=== PATIENT | female | born 1970 | race Caucasian/White ===

== ENCOUNTER → 2016-04-08 | Outpatient (CLI) | payer OTHER ==
[~2016-04-08] MED LIST: ACET-1311 PO; ATV5 PO; DYZ PO; EFF50 PO; EFFSR150 PO; IBUP-1050 PO; MAGN250T8 PO; PHEN-283 PO; POTA99TA PO; SIMV10TA2 PO
== END | disposition home or self-care (01) ==
LOC: C.LABBFT 08:03
PROVIDERS: ATTEND Internal Medicine
DX: E55.9 Vitamin D deficiency, unspecified (principal)

== ENCOUNTER → 2016-04-21 | Outpatient (CLI) | payer OTHER ==
[2016-04-21 17:25] LABS: BLOOD UREA NITROGEN 15 mg/dl (7-18); BUN/CREATININE RATIO 16.9 (10-20); CARBON DIOXIDE 32 mmol/L (21-32); CHLORIDE 100 mmol/L (98-107); CREATININE 0.86 mg/dl (0.60-1.20); GLUCOSE 142 mg/dl (70-99); POTASSIUM 2.9 mmol/L (3.5-5.1); SODIUM 140 mmol/L (136-145)
[2016-04-21 17:29] LABS: CALCIUM 8.9 mg/dl (8.5-10.1)
== END | disposition home or self-care (01) ==
LOC: C.LABBFT 11:11
PROVIDERS: ATTEND Nurse Practitioner
DX: I10 Essential (primary) hypertension (principal)

== ENCOUNTER → 2016-05-11 | Outpatient (CLI) | payer OTHER ==
--- NOTE | 2016-05-12 12:36 | MAMMOGRAPHY REPORT ---
BILATERAL DIGITAL SCREENING MAMMOGRAM TOMOSYNTHESIS WITH CAD: 05/11/2016 CLINICAL HISTORY: Routine screening. Patient has no complaints. TECHNIQUE: Breast tomosynthesis in addition to standard 2D mammography was performed. Current study was also evaluated with a Computer Aided Detection (CAD) system. COMPARISON: Comparison is made to exams dated: 04/14/2015 mammogram, 12/06/2013 mammogram, 06/06/2012 ma mmogram, 12/16/2013 mammogram, 01/17/2011 mammogram, and 05/25/2009 mammogram - [facility]. BREAST COMPOSITION: There are scattered areas of fibroglandular density in both breasts. FINDINGS: The parenchymal pattern is unchanged. No developing mass, architectural distortion or clu ster of suspicious microcalcifications is seen in either breast. IMPRESSION: ACR BI-RADS CATEGORY 2: BENIGN There is no mammographic evidence of malignancy. A 1 year screening mammogram is recommended. The p atient will receive written notification of the results. Approximately 10% of breast cancers are not detected with mammography. A negative mammographic repor t should not delay biopsy if a clinically suggestive mass is present. Cindy Flores M.D. ay/:05/11/2016 17:09:52 [employer] Wall Installations Mechanic: Daisha LAGUNAS(Dann)(M), [facility] letter sent: Normal 1/2 BI-RADS Code: ACR BI-RADS Category 2: Benign
== END | disposition home or self-care (01) ==
LOC: C.MAMM 10:22
PROVIDERS: ATTEND Internal Medicine
DX: Z12.31 Encounter for screening mammogram for malignant neoplasm of breast (principal)

== ENCOUNTER → 2016-06-29 | Outpatient (CLI) | payer OTHER ==
[2016-06-29 13:14] LABS: ESTIMATED AVERAGE GLUCOSE 117 mg/dl; HA1C FLAG Normal (Normal)
[2016-06-29 13:17] LABS: BLOOD UREA NITROGEN 15 mg/dl (7-18); BUN/CREATININE RATIO 18.5 (10-20); CALCIUM 8.5 mg/dl (8.5-10.1); CARBON DIOXIDE 31 mmol/L (21-32); CHLORIDE 104 mmol/L (98-107); CREATININE 0.83 mg/dl (0.60-1.20); GLUCOSE 129 mg/dl (70-99); POTASSIUM 4.1 mmol/L (3.5-5.1); SODIUM 140 mmol/L (136-145)
== END | disposition home or self-care (01) ==
LOC: C.LABBFT 08:25
PROVIDERS: ATTEND Internal Medicine
DX: R73.01 Impaired fasting glucose (principal)

== ENCOUNTER → 2016-07-08 | Outpatient (CLI) | payer OTHER ==
--- NOTE | 2016-07-09 06:33 | PAP/PSG TECHNICIAN REPORT ---
[facility] Elevator Starter Polysomnogram Report Study name: None Report date: 07/09/2016 Study date: 07/08/2016 Referring Physician: Anushka Pizarro PA-C Name: NIDIA PATEL Interpreting Physician: Enrrique Lee D.O. Date of : 1970 Elevator Starter: Claudia Espinal [facility]. Sex: Female Age: 46 StudyType: PSG Weight: 245 lbs 16 inches Height: 46 years, Height 5' 6" Neck Circum: BMI: 39.54 Medications: ATORVASTATIN 40 MG, KLOR-CON 20 MEQ, LORAZEPAM 0.5 MG, TRIAMTERENE-HCTZ 37.5-25 MG, VENLAFAXINE 150-75 MG Patient History 45 yr. old male here for a new titration sleep study. Patient had a PSG done on 02/02/16 and had an AHI of 32.4. [place] sleepiness scale score 17/24. Parameters Monitored NPSG: E1-M2, E2-M1, Fp1-M2, Fp2-M1, F3-M2, F4-M2, F4-M1, C3-M2, C4-M2, C4-M1, O1-M2, O2-M2, O2-M1, T3-M2, T4-M1, P3-M2, P4-M1, CHIN1, CHIN2, HR, EKG, Legs, PFLOW, SNOR, FLOW, CFLOW, Tidal Volume, THOR, ABDO, SpO2, PLTH, CPRESS, ETCO2 Wave, ETCO2, pH Sleep Architecture Sleep Stages Time at Lights Off 10:06:12 PM STAGES Time (min.) TST (%) Time at Lights On 5:35:12 AM Wake 74.5 -- Total Recording Time (TRT) 449.00 min. N1 28.5 8 Total Sleep Period (TSP) 417.0 min. N2 162.5 43 Total Sleep Time (TST) 374.5min. N3 66.5 18 Awake Time 74.5 min. REM 117.0 31 Wake after Sleep Onset 42.5 min. Sleep Efficiency (SE) 83 % Sleep Onset Latency (IONA) 32.0 min. Number of Stage 1 Shifts None Awakenings 24 Stage Changes 90 Number of REM periods 5 REM 117.0 31 REM Latency 130.5 min. NREM 257.5 69 Body Position Analysis Supine Right Left Side Prone Vertical Total Sleep Time (min.) 409.1 2.1 33.7 35.77 0.0 0.0 Total Sleep Time (%) 90% 1% 9% 10 0% N/A% Total Sleep Time REM (min.) 117.0 0.0 0.0 None 0.0 0.0 Total Sleep Time NREM (min.) 221.7 2.1 33.7 None 0.0 0.0 Intermittent Wake (min.) 70.4 1.3 2.8 None 0.0 0.0 Total Sleep Period (%) 90% None None None None None Arousals Myoclonus (PLM) * Events Count Index Events Count Index Spontaneous 11 2 Events Awake (PLMW) 34 27.4 Respiratory 3 0.5 Events Asleep w/ Arousal (PLMA) 22 3.5 PLM 22 4 Events Asleep w/o Arousal (PLMS) 291 46.6 Snoring 1 0 Total Asleep 313 50.1 Total 37 6 Total 347 46 Respiratory Analysis * CA OA MA CH H RERA Total Count 1 1 0 0 26 3 28 Index 0.2 0.2 0.0 0 4.2 0 5.0 Mean Duration 12.9 18.4 0.0 0.00 17.3 23.5 17.8 Longest Duration 12.9 18.4 0.0 0.00 0.0 30.2 32.7 Respiratory Event Summary Total Supine ~Supine Right Left Prone REM NREM Apneas Count 2 2 0 0 0 N/A 0 2 Index 0.3 0 0 0.0 0.0 N/A 0 0 Hypopneas (4% Desat) Count 26 24 2 0 2 N/A 3 23 Index 4.2 4.3 3 0.0 3.6 N/A 1.5 5.4 Apneas & All Hypopneas Count 28 26 2 0 2 N/A 3 25 Index 4.5 5 3 0 4 N/A 1.5 5.8 Respiratory Events (Gas Leak Inspector Helper+All Hyp+RERA) Count 28 29 2 0 2 N/A 3 25 Index 5.0 5 3 0.0 3.6 N/A 2.1 6.3 Respiratory Related Arousal Count 3 29 0 0 0 N/A 1 2 Index 0.5 1 0 0 0 N/A 1 0 Snoring Analysis Supine Right Left Prone REM NREM Total Snore duration 8.3 min Snores count 466 1 25 N/A 18 474 492 Snore mean duration 1.0 Sec Snores index 83 29 44 N/A 9.2 110.4 78.8 TST with snoring (%) 2.2% Desaturation Event Summary: Minimum %SpO2 Event Count Mean/Min/Max Duration(sec.) Desaturation Index % Time In Bed > 90 79 18.2 / 6.8 / 53.3 10.6 99.4 86 - 90 0 N/A 0.0 0.6 81 - 85 0 N/A 0.0 0.0 76 - 80 0 N/A 0.0 0.0 71 - 75 0 N/A 0.0 0.0 66 - 70 0 N/A 0.0 0.0 61 - 65 0 N/A 0.0 0.0 56 - 60 0 N/A 0.0 0.0 51 - 55 0 N/A 0.0 0.0 < 50 0 N/A 0.0 0.0 Total REM NREM Awake <50% 0.0 min. 0.0 min. 0.0 min. 0.0 min. 51 - 60% 0.0 min. 0.0 min. 0.0 min. 0.0 min. 61 - 70% 0.0 min. 0.0 min. 0.0 min. 0.0 min. 71 - 80% 0.0 min. 0.0 min. 0.0 min. 0.0 min. 81 - 90% 2.5 min. 0.4 min. 1.1 min. 1.0 min. 91 - 100% 446.5 min. 116.6 min. 256.4 min. 73.5 min. Average 94 94 94 95 Minimum SpO2 87 88 88 87 Desaturation Event Index 10.6 2.1 11.4 20.9 # Desat. Events below 89% 7 2 3 2 Time(%) with Saturation below 89% 0.1 0.0 0.1 0.1 Time(min.) with Saturation below 89% 0.5 0.0 0.2 0.3 Time (mins) REM (mins) NREM (mins) % of TST SpO2 Below 90% 12 3 N9 0.2 SpO2 Below 88% 2 0 0 0 Heart Rate Analysis Min (bpm) Max (bpm) Average (bpm) Awake 73 102 87 NREM 68 98 83 REM 73 101 84 Overall 68 101 83 Supplemental O2 Values Minimum O2 level: None Value Start Time End Time Elevator Starter Comments MS. Patel slept in the right, left, and supine positions. No cardiac arrhythmia. PLMs noted. No bruxism noted. CPAP was initiated at +4 CMH2O room air and up-titrated to an optimal level of +8 CMH2O Cflex, which nearly eliminated all respiratory events and snoring. A small ResMed mirage soft edge nasal mask, was used during titration. MS. Patel did not wake to use the restroom during the night. MS. Patel stated, "I slept okay". The final report will be interpreted and signed by a sleep physician. The completed physician report will then be placed in the patient medical record. Therapy Event: Therapy (cm H20) 4 5 6 7 8 Total Time at Pressure (min.) 96.4 59.3 117.9 69.7 105.8 TST at Pressure (min.) 55.9 58.8 93.9 63.7 102.3 # Periods 1 1 1 1 1 Sleep Onset (min.) 32.0 0.0 0.0 0.0 0.0 REM Onset (min.) N/A N/A 6.9 N/A 18.8 Sleep Efficiency % 58 99 79 91 96 Wakefulness (%) 42.0 0.8 20.4 8.6 3.3 Wakefulness (min.) 40.5 0.5 24.0 6.0 3.5 NREM 1 (%) 7.3 6.8 10.2 5.0 1.9 NREM 1 (min.) 7.0 4.0 12.0 3.5 2.0 NREM 2 (%) 22.7 53.6 10.1 62.7 50.4 NREM 2 (min.) 21.9 31.8 11.9 43.7 53.3 NREM 3 (%) 28.0 38.8 0.0 23.7 0.0 NREM 3 (min.) 27.0 23.0 0.0 16.5 0.0 REM (%) 0.0 0.0 59.4 0.0 44.4 REM (min.) 0.0 0.0 70.0 0.0 47.0 # Arousals 7 6 8 9 7 Arousal Index 7.5 6.1 5.1 8.5 4.1 # Snore 273 61 27 112 19 Snore Index 293.2 62.3 17.3 105.6 11.1 AHI 0.0 8.2 5.1 7.5 2.3 AHI Supine 0.0 8.2 5.2 12.0 2.3 AHI Non-Supine N/A N/A 0.0 3.6 N/A NREM AHI 0.0 8.2 15.1 7.5 3.3 REM AHI N/A N/A 1.7 N/A 1.3 RDI 0.0 9.2 5.8 7.5 2.9 # Obstructive 0 0 0 1 0 # Central Ap 0 0 0 1 0 # Mixed 0 0 0 0 0 # Hypopneas 0 8 8 6 4 RERAS 0 1 1 0 1 Total Respiratory Events 0 9 9 8 5 Time Below SpO2 89.00% (min.) 0.0 0.1 0.1 0.1 0.0 Mean NREM SpO2 (%) 93 93 94 94 95 Mean REM SpO2 (%) N/A N/A 94 N/A 95 Mean Sleep SpO2 (%) 93 93 94 94 95 Min NREM SpO2 (%) 91 88 88 88 91 Min REM SpO2 (%) N/A N/A 88 N/A 92 Position Supine (min.) 55.9 58.8 91.8 29.9 102.3 Position Non-supine (min.) 0.0 0.0 2.1 33.7 0.0 LM Index Sleep 148.2 52.1 17.9 60.3 18.8 LM Index NREM 148.2 52.1 60.2 60.3 31.5 LM Index REM N/A N/A 3.4 N/A 3.8 Mean Heart Rate (bpm) 89 86 85 78 80 Min Heart Rate (bpm) 83 76 73 70 68
--- NOTE | 2016-07-12 15:44 | POLYSOMNOGRAPH REPORT ---
CLINICAL DATA: A 46-year-old female with BMI of 39.5 referred for a CPAP titration study. She had a baseline sleep study done in 02/02/2016 which showed severe sleep apnea with an AHI of 32.4. Her [place] sleepiness score was 17/24. SLEEP ARCHITECTURE: Total sleep period was 417 minutes. Total sleep time was 374.5 minutes divided between 257.5 minutes of non-REM sleep and 117 minutes of REM sleep. Sleep onset latency was slightly delayed at 32 minutes. REM latency was 130.5 minutes. Sleep efficiency was 83%. Wake after sleep onset was 42.5 minutes. Sleep consisted of stage N1 8%, N2 43%, N3 18%, and REM 31%. AROUSAL DATA: 37 arousals were recorded for an index of 6 per hour. PERIODIC LIMB MOVEMENTS DATA: Elevated limb movements during sleep were noted. There were 313 limb movements during sleep noted for an index of 50.1 per hour with arousal index of 3.5 per hour. RESPIRATORY DATA: The AHI was 4.5. There was 1 central and 1 obstructive apneic episode. The longest duration of apnea was 18.4 seconds. There were 26 hypopneic episodes. The mean duration of hypopnea was 17.3 seconds. OXIMETRY DATA: No significant hypoxemia was seen. Oxygen gato was 88%. Mean saturation was 94%. ELECTROCARDIOGRAM: Heart ranged from 68-101 beats per minute. No arrhythmias were noted. GIRL FRIDAY'S COMMENTS: The patient slept in the right, left, and supine positions. CPAP was started using a small ResMed Mirage soft edge nasal mask. The patient was titrated up to her final pressure of 8 cm of water pressure, C-Flex 2. At that pressure, she slept for 102.3 minutes with an AHI of 2.3. IMPRESSION: Severe sleep apnea/hypopnea corrected with CPAP 8 cm of water pressure, C-flex setting #2, small ResMed Mirage soft edged nasal mask. RECOMMENDATIONS: The patient should be started on the above noted treatment regimen and seen back in followup within 90 days to document efficacy and compliance. MTDD
== END | disposition home or self-care (01) ==
LOC: C.NEUR 21:00
PROVIDERS: ATTEND Internal Medicine Pulmonary Disease
DX: G47.30 Sleep apnea, unspecified (principal)

== ENCOUNTER → 2016-07-12 | Outpatient (CLI) | payer OTHER ==
[~2016-07-12] VITALS: Ht 170.2 cm; Wt 123.6 kg
[2016-07-12 15:30] VITALS: BP 137/83; PULSE 97; Ht 170.2 cm; Wt 123.6 kg
== END | disposition home or self-care (01) ==
LOC: C.NEUR 14:50
PROVIDERS: ATTEND Physician Assistant Medical
DX: G47.33 Obstructive sleep apnea (adult) (pediatric) (principal)

== ENCOUNTER → 2016-09-27 | Outpatient (CLI) | payer OTHER ==
[~2016-09-27] VITALS: Ht 170.2 cm; Wt 125.3 kg
[2016-09-27 13:02] VITALS: BP 126/76; PULSE 105; Ht 170.2 cm; Wt 125.3 kg
== END | disposition home or self-care (01) ==
LOC: C.NEUR 12:52
PROVIDERS: ATTEND Physician Assistant Medical
DX: G47.33 Obstructive sleep apnea (adult) (pediatric) (principal); E66.01 Morbid (severe) obesity due to excess calories

== ENCOUNTER → 2016-11-09 | Outpatient (CLI) | payer OTHER ==
[2016-11-09 17:38] LABS: BASO % 0.4 %; BASO ABS # 0.02 K/uL (0-0.2); COMPLETE YES; EOS % 0.4 %; HEMATOCRIT 37.8 % (37-47); IG% 0.2 %; LYMPH % 26.2 %; LYMPH ABS # 1.45 K/uL (1.2-3.4); MEAN CORPUSCULAR HEMOGLOBIN 31.3 pg (25-34); MEAN CORPUSCULAR HGB CONC 33.3 g/dl (32-36); MEAN PLATELET VOLUME 10.4 fL (7.4-10.4); MONO % 7.6 %; NEUT % 65.2 %; PLATELET COUNT 282 K/uL (130-400); RED BLOOD COUNT 4.02 M/uL (4.2-5.4); WHITE BLOOD COUNT 5.53 K/uL (4.8-10.8)
[2016-11-09 17:49] LABS: ALT/SGPT 35 U/L (12-78); AST/SGOT 23 U/L (15-37); BLOOD UREA NITROGEN 17 mg/dl (7-18); BUN/CREATININE RATIO 18.4 (10-20); CALCIUM 9.9 mg/dl (8.5-10.1); CARBON DIOXIDE 28 mmol/L (21-32); CHLORIDE 104 mmol/L (98-107); CREATININE 0.91 mg/dl (0.60-1.20); GLUCOSE 98 mg/dl (70-99); SODIUM 140 mmol/L (136-145)
[2016-11-09 18:00] LABS: ALB/GLOB RATIO 1.1 (0.9-2); ALKALINE PHOSPHATASE 79 U/L (45-117)
[2016-11-10 06:21] LABS: ESTIMATED AVERAGE GLUCOSE 123 mg/dl; HA1C FLAG Normal (Normal)
--- NOTE | 2016-11-15 10:42 | CODING QUERY MEDICAL NECESSITY ---
CQSUPPORTING DIAGNOSIS NEEDED A supporting diagnosis is required for the test/procedure performed on this patient in order for us to be reimbursed by the patient's insurance. Please provide a supporting diagnosis for the following test/procedure listed below next to the test name along with your signature. *If there is no additional diagnosis for this patient that would support the following test/procedure please document that below next to the test/procedure. Test(s)/Procedure(s) that require a supporting diagnosis: DOS 11/09/16 GLYCATED HEMOGLOBIN TEST PREDIABETES DID NOT COVER Provider Signature: Date: Thank you Jesusita Jordan Health Information Management Once completed, please kindly fax back to [phone] For questions please call [phone]
== END | disposition home or self-care (01) ==
LOC: C.LABBFT 11:53
PROVIDERS: ATTEND Internal Medicine
DX: R73.03 Prediabetes (principal); R42 Dizziness and giddiness

== ENCOUNTER → 2017-04-25 | Outpatient (CLI) | payer OTHER ==
[2017-04-25 17:53] LABS: BASO % 0.3 %; BASO ABS # 0.02 K/uL (0-0.2); EOS % 0.8 %; EOS ABS # 0.06 K/uL (0-0.5); HEMATOCRIT 34.8 % (37-47); HEMOGLOBIN 11.5 g/dL (12.0-16.0); IG# 0.02 K/uL (0.00-0.02); LYMPH % 26.4 %; LYMPH ABS # 1.92 K/uL (1.2-3.4); MEAN CELL VOLUME 94.1 fL (80-100); MEAN CORPUSCULAR HEMOGLOBIN 31.1 pg (25-34); MEAN PLATELET VOLUME 10.3 fL (7.4-10.4); MONO % 7.4 %; MONO ABS # 0.54 K/uL (0.11-0.59); NEUT % 64.8 %; NEUT ABS # 4.71 K/uL (1.4-6.5); PLATELET COUNT 236 K/uL (130-400); RED CELL DISTRIBUTION WIDTH CV 12.8 % (11.5-14.5); RED CELL DISTRIBUTION WIDTH SD 43.8 fL (36.4-46.3); WHITE BLOOD COUNT 7.27 K/uL (4.8-10.8)
[2017-04-25 18:32] LABS: BLOOD UREA NITROGEN 12 mg/dl (7-18); CALCIUM 8.2 mg/dl (8.5-10.1); CARBON DIOXIDE 28 mmol/L (21-32); CREATININE 0.88 mg/dl (0.60-1.20); GLUCOSE 109 mg/dl (70-99); POTASSIUM 3.4 mmol/L (3.5-5.1); SODIUM 138 mmol/L (136-145)
== END | disposition home or self-care (01) ==
LOC: C.LABBFT 14:02
PROVIDERS: ATTEND Nurse Practitioner
DX: K62.5 Hemorrhage of anus and rectum (principal)

== ENCOUNTER → 2017-05-04 | Day surgery (SDC) | payer OTHER ==
[2017-05-03 15:37] VITALS: Ht 170.2 cm; Wt 113.6 kg
[~2017-05-04] VITALS: Ht 170.2 cm; Wt 113.6 kg
[~2017-05-04] MED LIST changes: -ACET-1311 PO; +ATOR-24 PO; -ATV5 PO; +BUTA1CAP20 PO; +CHOL200010 PO; -DYZ PO; -EFF50 PO; -EFFSR150 PO; -IBUP-1050 PO; +LIDOCAINE HCL 2% 2 ML VIAL (20MG/ML) ONE; +LORA-741 PO; +LOSA100T65 PO; -MAGN250T8 PO; -PHEN-283 PO; +POLYCAP4 PO; +POTA1TAB97 PO; -POTA99TA PO; +PROPOFOL IV EMULSION 10 MG/ML 20 ML VIAL IV ONE; -SIMV10TA2 PO; +SODIUM CHLORIDE 0.9% 500ML 500 ML IV ONE; +TRIA37.5 PO; +VALA1TAB31 PO; +VENL150C PO; +VENL75CA PO
--- NOTE | 2017-05-04 09:42 | Endo History and Physical ---
History & Physical Date of Service: May 04, 2017. Chief Complaint: Bright red blood per rectum Referring Physician: Dr Grant History of Present Illness rectal bleeding Past Surgical History Hx Cardiac Surgery: Yes (HEART CATH/NO STENTS, ASD REPAIR, CARDIAC ALBATION) Hx Internal Defibrillator: No Hx Pacemaker: No Hx Abdominal Surgery: Yes (APPY, INCISIONAL HERNIA, C-SECTIONS X 4, HYSTERECTOMY) Hx of Implantable Prosthesis: No Hx Post-Op Nausea and Vomiting: No Hx Cancer Surgery: No Hx Thoracic Surgery: No Hx Orthopedic: Yes (RT/LEFT CTR) Hx Urinary Tract Surgery: No Family History None Social History Smoking Status: Never Smoker Hx Substance Use: No Hx Alcohol Use: No Allergies Coded Allergies: Cefdinir (Verified Allergy, Unknown, HIVES, 05/04/17) Erythromycin (Verified Allergy, Unknown, HIVES, 05/04/17) Hydrocodone (Verified Allergy, Unknown, HIVES, 05/04/17) Oxycodone (Verified Allergy, Unknown, HIVES, 05/04/17) Penicillins (Verified Allergy, Unknown, HIVES, 05/04/17) Quinolones (Verified Allergy, Unknown, HIVES, 05/04/17) Current Medications Reported Home Medications Medications Dose Route/Sig Max Daily Dose Days Date Category Vitamin D (Cholecalciferol) 2,000 Unit Cap 1 Tab PO QAM 05/03/17 Reported Effexor Xr (Venlafaxine Hcl) 75 Mg Cap 1 Cap PO HS 05/03/17 Reported Effexor Xr (Venlafaxine Hcl) 150 Mg Cap 1 Cap PO QAM 05/03/17 Reported Valtrex (Valacyclovir Hcl) 1 Gm Tab 2 Tab PO QAM PRN 05/03/17 Reported Dyazide 37.5MG/25MG (Triamterene/HCTZ) Cap 1 Tab PO QAM 05/03/17 Reported K-Tab (Potassium Chloride) 20 Meq Tab 1 Tab PO BID 05/03/17 Reported Cozaar (Losartan Potassium) 100 Mg Tab 100 Mg PO QAM 05/03/17 Reported Ativan (Lorazepam) 0.5 Mg Tab 0.5 Mg PO Q4-6H PRN 05/03/17 Reported Iferex 150 (Polysaccharide Iron Complex) 150 Mg Cap 1 Cap PO 3XWK 05/03/17 Reported Butalbital/APAP/Caffeine 50-300-40 mg (Ylclvklsxu-Hywrsfyrvrocc-Owbej) 1 Cap Cap 1 Cap PO DIRECTED PRN 05/03/17 Reported Lipitor (Atorvastatin Calcium) 40 Mg Tab 40 Mg PO HS 05/03/17 Reported Vital Signs Weight (Kilograms): 113.64 Height (Feet): 5 Height (Inches): 7 Date Time Temp Pulse Resp B/P (MAP) Pulse Ox O2 Delivery O2 Flow Rate FiO2 05/04/17 09:29 36.6 88 20 155/97 (116) 98 Room Air Physical Exam General Appearance: WD/WN, no apparent distress Assessment and Plan colonoscopy today
--- NOTE | 2017-05-04 10:12 | Discharge Instructions ---
Endoscopy Patient Instructions Date / Procedure(s) Performed May 04, 2017. Colonoscopy Allergy Information Coded Allergies: Cefdinir (Verified Allergy, Unknown, HIVES, 05/04/17) Erythromycin (Verified Allergy, Unknown, HIVES, 05/04/17) Hydrocodone (Verified Allergy, Unknown, HIVES, 05/04/17) Oxycodone (Verified Allergy, Unknown, HIVES, 05/04/17) Penicillins (Verified Allergy, Unknown, HIVES, 05/04/17) Quinolones (Verified Allergy, Unknown, HIVES, 05/04/17) Discharge Date / Findings May 04, 2017. internal hemorrhoids Medication Instructions Restart Stopped Medication(s): OK to resume home medications Take stool softener daily. Provider Instructions Activity Restrictions - No exercising or heavy lifting for 24 hours. - Do not drink alcohol the day of the procedure. - Do not drive a car or operate machinery until the day after the procedure. - Do not make any important decisions or sign important papers in 24 hours after the procedure. Following Day: - Return to full activity which may include returning to work/school. Diet Start your diet with liquids and light foods (jello, soup, juice, toast). Then eat your usual diet if not nauseated. Treatment For Common After Affects For mild abdominal pain, bloating, or excessive gas: - Rest - Eat lightly - Lie on right side Follow-Up Information Follow-up with Dr Grant as scheduled Anesthesia Information What You Should Know You have had a procedure that required some medicine to reduce anxiety and discomfort. This treatment is called moderate sedation. After receiving the treatment, you may be sleepy, but you will be able to breathe on your own. The effects of the treatment may last for several hours. Follow these instructions along with Activity/Diet recommendations noted above: * Do NOT do anything where dizziness or clumsiness would be dangerous. * Rest quietly at home today, then you can be up and about tomorrow. * Have a responsible person stay with you the rest of today. * You may have had an I.V. today. If so, you may take the dressing off later today. Recommendations Call your doctor if: * Trouble breathing * Continuous vomiting for more than 24 hours * Temperature above 101 degrees * Severe abdominal pain or bloating * Pain not relieved by pain medicine ordered * There is increased drainage or redness from any incision * A large amount of rectal bleeding greater than 2-3 tablespoons. (If you had a polyp/s removed or have hemorrhoids, a small amount of blood - from the rectum is to be expected.) * You have any unanswered questions or concerns. IN THE EVENT OF A SERIOUS EMERGENCY, GO TO THE NEAREST EMERGENCY ROOM Your discharge instructions were prepared by provider Umm Chen. Patient Instructions Signature Page Daisha Patel Patient (or Guardian) Signature/Date: I have read and understand the instructions given to me by my caregivers. Caregiver/RN/Doctor Signature/Date: The above-named patient and/or guardian has received patient instructions on this date. + Original Patient Signature Page (only) stays with chart. Please make copy for patient.
--- NOTE | 2017-05-04 10:36 | Anesthesiology Progress Note ---
Anesthesia Post Op Note Date & Time May 04, 2017 at 10:35 Vital Signs Pain Intensity: 0 Vital Signs Past 12 Hours Date Time Temp Pulse Resp B/P (MAP) Pulse Ox O2 Delivery O2 Flow Rate FiO2 05/04/17 10:15 92 16 106/58 (74) 98 Room Air 05/04/17 09:29 36.6 88 20 155/97 (116) 98 Room Air Notes Mental Status: alert / awake / arousable, participated in evaluation Pt Amnestic to Procedure: Yes Nausea / Vomiting: adequately controlled Pain: adequately controlled Airway Patency, RR, SpO2: stable & adequate BP & HR: stable & adequate Hydration State: stable & adequate Anesthetic Complications: no major complications apparent
[2017-05-04 10:44] VITALS: BP 132/70; PULSE 81; O2SAT 98
--- NOTE | 2017-05-04 11:37 | GI REPORT ---
Procedure Date: 05/04/2017 9:48 AM Procedure: Colonoscopy Indications: Rectal bleeding Medicines: Propofol per Anesthesia Complications: No immediate complications. Estimated blood loss: None. Estimated Blood Loss: Estimated blood loss: none. Procedure: Pre-Anesthesia Assessment: - Prior to the procedure, a History and Physical was performed, and patient medications, allergies and sensitivities were reviewed. The patient's tolerance of previous anesthesia was reviewed. - The risks and benefits of the procedure and the sedation options and risks were discussed with the patient. All questions were answered and informed consent was obtained. - Patient identification and proposed procedure were verified prior to the procedure by the physician and the nurse. The procedure was verified in the pre-procedure area in the procedure room. - Mental Status Examination: alert and oriented. Airway Examination: normal oropharyngeal airway and neck mobility. Respiratory Examination: clear to auscultation. CV Examination: normal. Abdominal Examination: bowel sounds present, abdomen soft and non-tender, no masses or organomegaly noted. - ASA Grade Assessment: III - A patient with severe systemic disease. After I obtained informed consent, the scope was passed under direct vision. Throughout the procedure, the patient's blood pressure, pulse, and oxygen saturations were monitored continuously. The Scope was introduced through the anus and advanced to the cecum, identified by appendiceal orifice and ileocecal valve. The colonoscopy was performed without difficulty. The patient tolerated the procedure well. The quality of the bowel preparation was good. Findings: The perianal and digital rectal examinations were normal. Pertinent negatives include normal sphincter tone and no palpable rectal lesions. The terminal ileum appeared normal. The colon (entire examined portion) appeared normal. Non-bleeding internal hemorrhoids were found during retroflexion. The hemorrhoids were medium-sized and Grade I (internal hemorrhoids that do not prolapse). Impression: - The examined portion of the ileum was normal. - The entire examined colon is normal. - Non-bleeding internal hemorrhoids. - No specimens collected. Recommendation: - Repeat colonoscopy in 10 years for screening purposes. - Return to referring physician as previously scheduled. - Discharge patient to home. Umm Chen D.O. Umm Chen DO 05/04/2017 10:15:19 AM This report has been signed electronically. Note Initiated On: 05/04/2017 9:48 AM I attest to the content of the Intraoperative Record and orders documented therein, exceptions below
== END | disposition home or self-care (01) ==
LOC: C.GI 09:01
PROVIDERS: ATTEND Internal Medicine
DX: K62.5 Hemorrhage of anus and rectum (principal); Z79.899 Other long term (current) drug therapy; K64.8 Other hemorrhoids

== ENCOUNTER → 2017-05-16 | Outpatient (CLI) | payer OTHER ==
[~2017-05-16] VITALS: Ht 170.2 cm; Wt 125.4 kg
[~2017-05-16] MED LIST changes: -LIDOCAINE HCL 2% 2 ML VIAL (20MG/ML) ONE; -PROPOFOL IV EMULSION 10 MG/ML 20 ML VIAL IV ONE; -SODIUM CHLORIDE 0.9% 500ML 500 ML IV ONE
[2017-05-16 13:19] VITALS: BP 127/79; PULSE 88; Ht 170.2 cm; Wt 125.4 kg
== END | disposition home or self-care (01) ==
LOC: C.NEUR 12:25
PROVIDERS: ATTEND Physician Assistant Medical
DX: G47.33 Obstructive sleep apnea (adult) (pediatric) (principal); G47.34 Idiopathic sleep related nonobstructive alveolar hypoventilation; E66.01 Morbid (severe) obesity due to excess calories; Z68.41 Body mass index [BMI] 40.0-44.9, adult

== ENCOUNTER → 2017-05-16 | Outpatient (CLI) | payer OTHER ==
[2017-05-16 12:52] LABS: BASO % 0.4 %; BASO ABS # 0.02 K/uL (0-0.2); EOS % 0.4 %; EOS ABS # 0.02 K/uL (0-0.5); HEMATOCRIT 35.9 % (37-47); HEMOGLOBIN 12.3 g/dL (12.0-16.0); IG# 0.01 K/uL (0.00-0.02); LYMPH % 28.3 %; LYMPH ABS # 1.33 K/uL (1.2-3.4); MEAN CELL VOLUME 93.5 fL (80-100); MEAN CORPUSCULAR HGB CONC 34.3 g/dl (32-36); MEAN PLATELET VOLUME 10.2 fL (7.4-10.4); MONO % 6.6 %; MONO ABS # 0.31 K/uL (0.11-0.59); NEUT % 64.1 %; NEUT ABS # 3.01 K/uL (1.4-6.5); PLATELET COUNT 227 K/uL (130-400); RED CELL DISTRIBUTION WIDTH CV 13.1 % (11.5-14.5); RED CELL DISTRIBUTION WIDTH SD 44.8 fL (36.4-46.3); RETIC COUNT % 2.2 % (0.5-2.0)
[2017-05-16 13:08] LABS: HEMOGLOBIN A1C 6.1 % (4.5-5.6)
[2017-05-16 13:37] LABS: BLOOD UREA NITROGEN 15 mg/dl (7-18); CALCIUM 8.3 mg/dl (8.5-10.1); CARBON DIOXIDE 28 mmol/L (21-32); CREATININE 0.84 mg/dl (0.60-1.20); GLUCOSE 133 mg/dl (70-99); POTASSIUM 3.5 mmol/L (3.5-5.1); SODIUM 139 mmol/L (136-145)
[2017-05-16 13:49] LABS: CHOLESTEROL 109 mg/dl (0-200); LDL CHOLESTEROL CALCULATED 61 mg/dl; TRANSFERRIN 286 mg/dl (200-360)
== END | disposition home or self-care (01) ==
LOC: C.LABBFT 10:18
PROVIDERS: ATTEND Internal Medicine
DX: R32 Unspecified urinary incontinence (principal); R73.01 Impaired fasting glucose; D64.9 Anemia, unspecified; I47.1 Supraventricular tachycardia; E78.00 Pure hypercholesterolemia, unspecified; E55.9 Vitamin D deficiency, unspecified

== ENCOUNTER → 2017-06-09 | Outpatient (CLI) | payer OTHER ==
--- NOTE | 2017-06-12 15:17 | MAMMOGRAPHY REPORT ---
BILATERAL DIGITAL SCREENING MAMMOGRAM TOMOSYNTHESIS WITH CAD: 06/09/2017 CLINICAL HISTORY: Routine screening. Patient has no complaints. TECHNIQUE: Breast tomosynthesis in addition to standard 2D mammography was performed. Current study was also evaluated with a Computer Aided Detection (CAD) system. COMPARISON: Comparison is made to exams dated: 05/11/2016 mammogram, 04/14/2015 mammogram, 12/16/2013 ma mmogram, 12/16/2013 ultrasound, 12/06/2013 mammogram, and 06/06/2012 mammogram - [facility]. BREAST COMPOSITION: There are scattered areas of fibroglandular density in both breasts. FINDINGS: No suspicious masses, calcifications, or areas of architectural distortion are noted in ei ther breast. There has been no significant interval change compared to prior exams. IMPRESSION: ACR BI-RADS CATEGORY 1: NEGATIVE There is no mammographic evidence of malignancy. A 1 year screening mammogram is recommended. The pa tient will receive written notification of the results. Approximately 10% of breast cancers are not detected with mammography. A negative mammographic report should not delay biopsy if a clinically suggestive mass is present. Nelsy Olivia M.D. /:06/09/2017 15:03:17 Security Control Room Officer: Barbara Boggs, [facility] letter sent: Normal 1/2 BI-RADS Code: ACR BI-RADS Category 1: Negative
== END | disposition home or self-care (01) ==
LOC: C.MAMM 14:08
PROVIDERS: ATTEND Internal Medicine
DX: Z12.31 Encounter for screening mammogram for malignant neoplasm of breast (principal)

== ENCOUNTER → 2017-10-20 | Outpatient (CLI) | payer OTHER ==
[~2017-10-20] MED LIST changes: +IRONCAP PO; -POLYCAP4 PO; -VENL150C PO; +VENL150C71 PO; -VENL75CA PO; +VENL75CA94 PO
[2017-10-20 17:23] LABS: BASO % 0.3 %; BASO ABS # 0.02 K/uL (0-0.2); EOS % 0.6 %; EOS ABS # 0.04 K/uL (0-0.5); HEMATOCRIT 33.7 % (37-47); HEMOGLOBIN 11.4 g/dL (12.0-16.0); IG# 0.01 K/uL (0.00-0.02); LYMPH % 27.7 %; MEAN CELL VOLUME 93.4 fL (80-100); MEAN CORPUSCULAR HEMOGLOBIN 31.6 pg (25-34); MEAN CORPUSCULAR HGB CONC 33.8 g/dl (32-36); MEAN PLATELET VOLUME 10.3 fL (7.4-10.4); MONO ABS # 0.34 K/uL (0.11-0.59); NEUT % 66.3 %; NEUT ABS # 4.55 K/uL (1.4-6.5); PLATELET COUNT 240 K/uL (130-400); RED CELL DISTRIBUTION WIDTH CV 13.3 % (11.5-14.5); RED CELL DISTRIBUTION WIDTH SD 45.5 fL (36.4-46.3); WHITE BLOOD COUNT 6.86 K/uL (4.8-10.8)
[2017-10-20 17:57] LABS: ALBUMIN 3.7 gm/dl (3.4-5.0); ALKALINE PHOSPHATASE 85 U/L (45-117); ALT/SGPT 25 U/L (12-78); AST/SGOT 22 U/L (15-37); BLOOD UREA NITROGEN 17 mg/dl (7-18); CALCIUM 8.4 mg/dl (8.5-10.1); CARBON DIOXIDE 26 mmol/L (21-32); CHOLESTEROL 113 mg/dl (0-200); CREATININE 1.04 mg/dl (0.60-1.20); GLUCOSE 188 mg/dl (70-99); LDL CHOLESTEROL CALCULATED 57 mg/dl; POTASSIUM 3.6 mmol/L (3.5-5.1); SODIUM 138 mmol/L (136-145); TOTAL PROTEIN 7.2 gm/dl (6.4-8.2)
[2017-10-21 06:32] LABS: HEMOGLOBIN A1C 7.2 % (4.5-5.6)
== END | disposition home or self-care (01) ==
LOC: C.LABBFT 14:46
PROVIDERS: ATTEND Nurse Practitioner
DX: R73.01 Impaired fasting glucose (principal); E78.00 Pure hypercholesterolemia, unspecified; D64.9 Anemia, unspecified; R63.5 Abnormal weight gain

== ENCOUNTER 2018-06-10 16:56 | Observation (INO) ==
[2018-06-10] MEDS ORDERED: ONDANSETRON INJ 2 MG/ML 2 ML VIAL IV STA (17:35)
--- NOTE | 2018-06-10 17:35 | Emergency Department Note ---
History of Present Illness General Chief Complaint: Abdominal Pain Stated Complaint: CONSTIPATION Time Seen by Provider: 06/10/18 17:02 History of Present Illness Maximum Pain Intensity: 10 This patient is a 47-year-old female who presents to the emergency department complaining of severe constipation, nausea and abdominal pain. She has not had a bowel movement in 2 weeks. She reports is very unusual for her. She does have a history of gastroparesis. The patient tried an enema today with no relief. She reports feeling dizzy/lightheaded while trying to have a bowel movement today. She also notes blood on the toilet paper when she wiped. She denies any fever or chills. Her abdominal pain is cramping in nature. Movement seems to make her symptoms worse. Related Data Patient Confirmed : No Home Medications Home Medications Medication Instructions Recorded Confirmed Type atorvastatin 40 mg PO QPM 02/25/18 06/10/18 History oykfifzmjh-npyineeutkqld-rypj 1 cap PO UD PRN 02/25/18 06/10/18 History [Fioricet] cholecalciferol (vitamin D3) 2,000 units PO QAM 02/25/18 06/10/18 History [Vitamin D3] escitalopram oxalate 20 mg PO HS 02/25/18 06/10/18 History lorazepam 0.5 mg PO DIRECTED PRN 02/25/18 06/10/18 History losartan 100 mg PO QAM 02/25/18 06/10/18 History potassium chloride 20 meq PO BID 02/25/18 06/10/18 History triamterene-hydrochlorothiazid 1 cap PO QAM 02/25/18 06/10/18 History valacyclovir 2,000 mg PO DAILY PRN 02/25/18 06/10/18 History Victoza 3-Antonio 1.8 mg SUBCUT HS 05/02/18 06/10/18 History bupropion HCl [Wellbutrin SR] 150 mg PO BID 05/07/18 06/10/18 History Allergies Allergy/AdvReac Type Severity Reaction Status Date / Time cefdinir Allergy Unknown HIVES Verified 05/07/18 11:20 erythromycin base Allergy Unknown HIVES Verified 05/07/18 11:20 hydrocodone Allergy Unknown HIVES Verified 05/07/18 11:20 oxycodone Allergy Unknown HIVES Verified 05/07/18 11:20 Penicillins Allergy Unknown HIVES Verified 05/07/18 11:20 Quinolones Allergy Unknown HIVES Verified 05/07/18 11:20 benzyl alcohol AdvReac Unknown "FELT Verified 05/07/18 11:20 WEIRD" prochlorperazine AdvReac Unknown "FELT Verified 05/07/18 11:20 WEIRD" saccharin AdvReac Unknown "FELT Verified 05/07/18 11:20 WEIRD" Past Med/Surg History Medical History Hypertension (Chronic) Hypokalemia (Acute) Anxiety Depression Diabetes mellitus, type 2 Fatty liver disease, nonalcoholic GERD (gastroesophageal reflux disease) Hyperlipidemia Migraine SVT (supraventricular tachycardia) Sleep apnea cpap Surgical History H/O atrial septal defect repair 1985 @ [place], [place] History of bilateral carpal tunnel release History of bilateral salpingo-oophorectomy (BSO) History of bilateral tubal ligation [place] cardiac [place]frequency [place] [facility] [place] of colonoscopy History of hysterectomy History of wisdom tooth extraction Hx of appendectomy Hx of section x4 Hx of hernia repair Family History Grandmother (Maternal) Family history of diabetes mellitus Other No family history of adverse response to anesthesia Social History Preferred Language: Congolese Beliefs That Will Affect Care: None marital status: Current Living Situation: Family and Significant Other Current Living Situation Comment: Lives with boyfriend and daughter current occupational status: employed Feels Safe at Home: Yes Smoking Status: Never smoker Hx Alcohol Use: No Hx Substance Use: No Review of Systems A total of 10 systems reviewed and were otherwise negative Physical Exam Vital Signs: Vital Signs - 24 hr 06/10/18 16:56 06/10/18 19:00 06/10/18 19:50 Temperature 36.7 C Temperature Source Oral Sepsis Recent Feve r Within 48 Hours No Sepsis New/Unexpla ined Change in Men tremayne Status No Sepsis Action Take n by Nursing No Action Required Pulse Rate - Lying 97 H Pulse Rate - Sitti ng 109 H Pulse Rate - Stand ing 109 H Pulse Rate 106 H Pulse Rate [Apical ] 101 H Pulse Rhythm Regular Respiratory Rate 26 H 24 Respiratory Effort / Characteristics Non-Labored Sponta neous Respiratory Depth Normal Normal Respiratory Patter n Regular Blood Pressure - L sincere 91/41 L Blood Pressure - S itting 82/57 L Blood Pressure- St anding 91/41 L Blood Pressure 112/74 Blood Pressure [Ri ght Arm] 88/55 L Blood Pressure Apurva n 86 Blood Pressure Apurva n [Right Arm] 66 Pulse Oximetry 99 99 Oxygen Delivery Me thod Room Air Room Air Constitutional: WD/WN, vitals as above + acute distress (In acute discomfort) Eyes: EOM intact bilaterally ENMT: external ear and nose normal, oropharynx normal (Oral mucosa dry) Neck: trachea midline Respiratory: normal respiratory effort, lungs clear to auscultation Cardiovascular: RRR, no murmur, no edema Gastrointestinal (Abdomen): Multiple ventral hernias noted. All reducible. Mild tenderness to palpation in the epigastric region. No guarding or rebound tenderness. Bowel sounds present. Rectal exam reveals a moderate amount of formed stool in the rectal vault. Good sphincter tone. There is an external hemorrhoid noted. No fissures noted. I was unable to extract any of the stool. Musculoskeletal: no cyanosis or clubbing, extremities motor strength 5/5 Skin: no rashes, warm and dry Neurologic: Alert and oriented x3. No focal motor deficits. Psychiatric: Acting appropriately Course Patient was seen and examined Vital signs including blood pressure were reviewed medications list was verified with patient Labs were obtained, and a saline lock was established She was ordered Zofran 4 mg IV. The patient was hydrated with 1 L of normal saline. Imaging was performed and reviewed Upon reevaluation, the patient said that she was feeling slightly better. We reviewed her results. She voiced understanding. KCl 10 mEq IV ordered. An additional liter of normal saline ordered. An EKG was performed. The patient was put on a monitor. Upon reevaluation, she was feeling better. We reviewed her results. She voiced understanding. The case [facility] the patient Consultations Consultation #1: [facility] Administered Medications Discontinued Medications Albuterol (Ventolin 0.083% 2.5mg/3ml) 2.5 mg NEB NOW STA Stop: 06/10/18 19:14 Last Admin: 06/10/18 20:09 Dose: Not Given Documented by: [id number] Potassium Chloride (K Ghassan / Wtr) 10 meq in 100 mls @ 100 mls/hr IV ONE ONE Stop: 06/10/18 20:11 Last Infusion: 06/10/18 21:10 Dose: 0 mls/hr Documented by: [id number] Admin: 06/10/18 19:50 Dose: 75 mls/hr Documented by: [id number] Sodium Chloride (Nss 1000ml) 1,000 mls @ 999 mls/hr IV .Q1H1M ONE Stop: 06/10/18 20:48 Last Infusion: 06/10/18 21:00 Dose: 0 mls/hr Documented by: [id number] Admin: 06/10/18 19:50 Dose: 999 mls/hr Documented by: [id number] Ondansetron HCl (Zofran) 4 mg IV NOW STA Stop: 06/10/18 17:36 Last Admin: 06/10/18 18:13 Dose: 4 mg Documented by: [id number] Medical Decision Making Medical Records Attestation: I reviewed the patient's medical records. Home Medications Current Medication List: was personally reviewed by me Laboratory Data Attestation: I reviewed the patient's lab results. Result diagrams: 06/10/18 17:59 06/10/18 17:59 Lab Results 06/10/18 06/10/18 06/10/18 Range/Units 17:59 17:59 17:59 WBC 8.92 (4.8-10.8) K/uL RBC 3.78 L (4.2-5.4) M/uL Hgb 12.0 (12.0-16.0) g/dL Hct 34.7 L (37-47) % MCV 91.8 (80-100) fL MCH 31.7 (25-34) pg MCHC 34.6 (32-36) g/dL RDW Std Deviation 42.4 (36.4-46.3) fL RDW Coeff of Teresa 12.6 (11.5-14.5) % Plt Count 230 (130-400) K/uL MPV 10.3 (7.4-10.4) fL Immature Gran % (Auto) 0.2 % Neut % (Auto) 88.3 % Lymph % (Auto) 7.6 % [place] % (Auto) 3.7 % Eos % (Auto) 0.0 % Baso % (Auto) 0.2 % Immature Gran # (Auto) 0.02 (0.00-0.02) K/uL Neut # (Auto) 7.87 H (1.4-6.5) K/uL Lymph # (Auto) 0.68 L (1.2-3.4) K/uL [place] # (Auto) 0.33 (0.11-0.59) K/uL Eos # (Auto) 0.00 (0-0.5) K/uL Baso # (Auto) 0.02 (0-0.2) K/uL Sodium 138 (136-145) mmol/L Potassium 2.8 L (3.5-5.1) mmol/L Chloride 101 (98-107) mmol/L Carbon Dioxide 25 (21-32) mmol/L Anion Gap 12.0 H (3-11) BUN 14 (7-18) mg/dl Creatinine 1.83 H (0.6-1.2) mg/dl Est Cr Clr Drug Dosing 49.2 ml/min Est GFR ( Amer) 37.4 Est GFR (Non-Af Amer) 32.3 BUN/Creatinine Ratio 7.7 L (10-20) Glucose 130 H (70-99) mg/dl Calcium 8.4 L (8.5-10.1) mg/dl Magnesium 1.2 L Cancelled (1.8-2.4) mg/dl Total Bilirubin 0.7 (0.2-1) mg/dl AST 22 (15-37) U/L ALT 20 (12-78) U/L Alkaline Phosphatase 104 (45-117) U/L Total Protein 7.8 (6.4-8.2) gm/dl Albumin 3.9 (3.4-5.0) gm/dl Globulin 3.9 (2.5-4.0) gm/dl Albumin/Globulin Ratio 1.0 (0.9-2) Lipase 316 (73-393) U/L Imaging Data Attestation: I personally reviewed and interpreted this imaging study as follows: Radiologist's Impression: X-ray KUB FINDINGS: The soft tissues, psoas shadows, renal outlines and intestinal gas pattern appear normal. There is no evidence for bowel obstruction. No abnormal abdominal calcifications are seen. IMPRESSION: Normal study. The above report was generated using voice recognition software. It may contain grammatical, syntax or spelling errors. Electronically signed by: Niko Soares M.D. 06/10/2018 5:46 PM ECG Data Indication: abdominal pain Rate (beats per minute): 98 Rhythm: normal sinus Findings: + T-wave inversion (Anterior) Additional Comments: No change when compared to prior EKG. Blood Pressure Blood Pressure Findings: Low blood pressure MDM Narrative Differential diagnosis: Constipation, viral GI illness, bacterial GI illness, pancreatitis, gastritis, incarcerated hernia, dehydration, gastroparesis, among others This patient is a 47-year-old female who presents to the emergency department via ambulance for evaluation of constipation, abdominal pain and dizziness. On exam, she was significantly uncomfortable. She has mild tenderness in the epi gastrium. There is no guarding or rebound tenderness to suggest a surgical abdomen. She does have ventral hernias, all which are reducible. I ordered a KUB. No acute abnormalities were noted. Regarding her labs. There is no leukocytosis. Her creatinine is elevated. She is also hypokalemic. The patient is hypotensive despite IV hydration. I had doubts that she will be able to rehydrate at home. For these reasons, it was felt that hospitalist consultation was warranted. They will evaluate the patient for possible inpatient management. Impression & Plan Acute hypotension, Acute hypokalemia Discharge Plan Visit Data Chief Complaint: Abdominal Pain Stated Complaint: CONSTIPATION ED Provider: Thom Alas ED Midlevel Provider: Edith Daniels Discharge Problem: Acute hypotension, Acute hypokalemia Forms Stand Alone Forms: Call Back Authorization, [facility] Prescriptions Prescriptions: No Action atorvastatin 40 mg Tablet 40 mg PO QPM RF: 0 valacyclovir 1 gram Tablet 2,000 mg PO DAILY PRN (Reason: Cold Sores) RF: 0 triamterene-hydrochlorothiazid 37.5-25 mg Capsule 1 cap PO QAM RF: 0 lorazepam 0.5 mg Tablet 0.5 mg PO DIRECTED PRN (Reason: Anxiety) RF: 0 losartan 100 mg Tablet 100 mg PO QAM RF: 0 cholecalciferol (vitamin D3) [Vitamin D3] 2,000 unit Capsule 2,000 units PO QAM RF: 0 tidtlgzpqs-feamjwcnfaqhc-dije [Fioricet] 50-300-40 mg Capsule 1 cap PO UD PRN (Reason: Migraine Headache) RF: 0 potassium chloride 20 mEq Tablet Extended Release 20 meq PO BID RF: 0 escitalopram oxalate 20 mg Tablet 20 mg PO HS RF: 0 Victoza 3-Antoino 0.6 mg/0.1 mL (18 mg/3 mL) Pen Injector 1.8 mg SUBCUT HS RF: 0 bupropion HCl [Wellbutrin SR] 150 mg Tablet Sustained-Release 12 Hr 150 mg PO BID RF: 0 Referrals Referrals: Mickey Grant MD [Primary Care Provider] -
--- NOTE | 2018-06-10 17:48 | XRay Report ---
XR KUB CLINICAL HISTORY: abd pain constipation COMPARISON STUDY: No previous studies for comparison. FINDINGS: The soft tissues, psoas shadows, renal outlines and intestinal gas pattern appear normal. T here is no evidence for bowel obstruction. No abnormal abdominal calcifications are seen. IMPRESSION: Normal study. The above report was generated using voice recognition software. It may contain grammatical, syntax or spelling errors. Electronically signed by: Niko Soares M.D. 06/10/2018 5:46 PM
[2018-06-10 18:12] LABS: Basophils # (auto) 0.02 K/uL (0-0.2); Basophils % (auto) 0.2 %; Hematocrit (blood only) 34.7 % (37-47); Immature Granulocytes # (auto) 0.02 K/uL (0.00-0.02); Immature Granulocytes % (auto) 0.2 %; Lymphocytes # (auto) 0.68 K/uL (1.2-3.4); Lymphocytes % (auto) 7.6 %; Mean Corpuscular Hgb Conc 34.6 g/dL (32-36); Mean Corpuscular Volume 91.8 fL (80-100); Mean Platelet Volume 10.3 fL (7.4-10.4); Monocytes # (auto) 0.33 K/uL (0.11-0.59); Monocytes % (auto) 3.7 %; Neutrophils # (auto) 7.87 K/uL (1.4-6.5); Neutrophils % (auto) 88.3 %; Platelet Count 230 K/uL (130-400); RDW Coefficient of Variation 12.6 % (11.5-14.5); RDW Standard Deviation 42.4 fL (36.4-46.3); Red Blood Count 3.78 M/uL (4.2-5.4); White Blood Count 8.92 K/uL (4.8-10.8)
[2018-06-10 18:29] LABS: Albumin Level 3.9 gm/dl (3.4-5.0); BUN Creatinine Ratio 7.7 (10-20); Calcium 8.4 mg/dl (8.5-10.1); Creatinine Clr Calc Pharmacy 49.2 ml/min; Est GFR (African American) 37.4; Est GFR (Non-African American) 32.3; Potassium 2.8 mmol/L (3.5-5.1)
[2018-06-10 18:31] LABS: Bilirubin,Total 0.7 mg/dl (0.2-1); Globulin 3.9 gm/dl (2.5-4.0); Total Protein 7.8 gm/dl (6.4-8.2)
[2018-06-10] MEDS ORDERED: POTASSIUM CHLORIDE / WTR 10 MEQ/100 ML PLCT IV ONE (19:12)
[2018-06-10] MEDS ORDERED: ALBUTEROL 0.083% NEBU SOLN 3 ML VIAL NEB STA (19:13)
[2018-06-10] MEDS ORDERED: SODIUM CHLORIDE 0.9% 1000ML 1,000 ML IV ONE ×2 (19:48→20:59)
[2018-06-10] MEDS ORDERED: POTASSIUM CHLORIDE 20 MEQ TABCR PO STA (21:00)
--- NOTE | 2018-06-10 21:01 | History & Physical Report ---
Date of Service June 10, 2018 Assessment & Plan (1) Acute kidney injury: Acute kidney injury/hypokalemia/dehydration-- Hold triamterene/HCTZ and losartan, and then resume when renal function normalizes, and encourage adequate oral intake of liquids. She will be given a total of 3 L of normal saline in the ED. She is received 1 10 mEq K rider while in the ED, but none further due to burning. Give Klor-Con 40 mEq p.o. now. Then continue at 20 mEq p.o. twice daily. Start NSS + KCl 20 mEq at 150 mL's per hour. Repeat BMP and magnesium level in the a.m. Present on Admission?: Yes (2) Acute hypokalemia: As above. Present on Admission?: Yes (3) Delayed gastric emptying: Study on 05/09/18 showed delayed gastric emptying likely with diabetic gastroparesis-- She has tried Reglan in the past but stopped due to side effects. Next option would be to try Amitiza as an outpatient. Her symptoms should improve significantly with rehydration during this admission. Adjusting diet and exercise. We will add MiraLAX as needed. Present on Admission?: Yes (4) Hyperlipidemia: Continue atorvastatin 40 mg daily Present on Admission?: Yes (5) Depression: Continue bupropion, Lexapro, lorazepam. Present on Admission?: Yes (6) Diabetes mellitus: Hold Victoza. Placed on Accu-Cheks before meals and at bedtime with NovoLog coverage per scale Present on Admission?: Yes History of Present Illness Chief Complaint: Patient presents to the emergency department with complaint of no bowel movement for 2 weeks. Primary Care Provider: Yifan Grant MD The patient is a 47-year-old female who complains of abdominal pain secondary to constipation, with no bowel movement over the past 2 weeks. She has been diagnosed with gastroparesis and delayed gastric emptying via study on 05/09/18. She had tried enema earlier in the day without relief. She reports that earlier today when she tried to strain harder bowel movement she felt lightheaded and dizzy, had noted a few spots of blood on toilet paper with a known history of hemorrhoids, and thus presents to the emergency department for assessment. Allergies Allergy/AdvReac Type Severity Reaction Status Date / Time cefdinir Allergy Unknown HIVES Verified 05/07/18 11:20 erythromycin base Allergy Unknown HIVES Verified 05/07/18 11:20 hydrocodone Allergy Unknown HIVES Verified 05/07/18 11:20 oxycodone Allergy Unknown HIVES Verified 05/07/18 11:20 Penicillins Allergy Unknown HIVES Verified 05/07/18 11:20 Quinolones Allergy Unknown HIVES Verified 05/07/18 11:20 benzyl alcohol AdvReac Unknown "FELT Verified 05/07/18 11:20 WEIRD" prochlorperazine AdvReac Unknown "FELT Verified 05/07/18 11:20 WEIRD" saccharin AdvReac Unknown "FELT Verified 05/07/18 11:20 WEIRD" Home Medications Home Medications Medication Instructions Recorded Confirmed Type atorvastatin 40 mg PO QPM 02/25/18 06/10/18 History cceshwyfsj-xoanitysjhbjt-eyvd 1 cap PO UD PRN 02/25/18 06/10/18 History [Fioricet] cholecalciferol (vitamin D3) 2,000 units PO QAM 02/25/18 06/10/18 History [Vitamin D3] escitalopram oxalate 20 mg PO HS 02/25/18 06/10/18 History lorazepam 0.5 mg PO DIRECTED PRN 02/25/18 06/10/18 History losartan 100 mg PO QAM 02/25/18 06/10/18 History potassium chloride 20 meq PO BID 02/25/18 06/10/18 History triamterene-hydrochlorothiazid 1 cap PO QAM 02/25/18 06/10/18 History valacyclovir 2,000 mg PO DAILY PRN 02/25/18 06/10/18 History Victoza 3-Antonio 1.8 mg SUBCUT HS 05/02/18 06/10/18 History bupropion HCl [Wellbutrin SR] 150 mg PO BID 05/07/18 06/10/18 History Past Med/Surg History Medical History Hypertension (Chronic) Hypokalemia (Acute) Anxiety Depression Diabetes mellitus, type 2 Fatty liver disease, nonalcoholic GERD (gastroesophageal reflux disease) Hyperlipidemia Migraine SVT (supraventricular tachycardia) Sleep apnea cpap Surgical History H/O atrial septal defect repair 1985 @ [place], [place] History of bilateral carpal tunnel release History of bilateral salpingo-oophorectomy (BSO) History of bilateral tubal ligation [place] cardiac [place]frequency [place] [facility] [place] of colonoscopy History of hysterectomy History of wisdom tooth extraction Hx of appendectomy Hx of section x4 Hx of hernia repair Family History Grandmother (Maternal) Family history of diabetes mellitus Other No family history of adverse response to anesthesia Social History Preferred Language: Luxembourgish Communication Ability: Effective Vascular Ultrasound Technician Required: No Beliefs That Will Affect Care: None marital status: Current Living Situation: Family and Significant Other Current Living Situation Comment: Lives with s/o and daughter current occupational status: employed Other Information That Helps Us Care for You: No Feels Safe at Home: Yes Safety Concerns: Feels Safe At This Time Smoking Status: Never smoker Hx Alcohol Use: No Hx Substance Use: No Review of Systems The patient denies chest pain, palpitations, shortness of breath, dyspnea on exertion, cough, lower extremity swelling, sore throat, fevers, chills, sweats, vomiting, diarrhea, blood in urine, dysuria, urinary frequency or urgency, headache, memory loss, loss of consciousness, rash, abnormal bruising,, imbalance, focal or generalized weakness, numbness or tingling in arms or legs, generalized arthralgias or myalgias, back or neck pain, or night sweats. The review of systems is otherwise negative other than for that already noted above, and at least 10 systems have been reviewed. Physical Exam Vital Signs (Past 24 Hours): Last Vital Signs Temp 36.7 C 06/10/18 16:56 Pulse 101 H 06/10/18 19:00 Resp 24 06/10/18 19:00 BP 88/55 L 06/10/18 19:00 Pulse Ox 99 06/10/18 19:00 Physical Exam: The patient is awake, alert and oriented 3, well developed and well nourished, normocephalic and atraumatic, lying in bed and in no acute distress. HEENT--PERRL, EOMI, mucous membranes and oropharynx dry. Neck--supple. No JVD. No bruits. Thyroid normal, trachea midline, no adenopathy. Heart--normal S1 and S2. No murmurs, rubs or gallops. Lungs--clear bilaterally, no respiratory distress, no accessory muscle use. Abdomen--normal bowel sounds and soft. Nontender. Nondistended, no hernias or masses, no organomegaly. Extremities--no cyanosis or clubbing. No edema. There are good distal pulses b/l. Dermatologic--normal skin turgor, normal color, no abnormal lymph nodes, no rash. Neurologic--cranial nerves II through XII grossly intact. Rheumatologic--normal range of motion. Psychiatric--normal affect. Results & Data Laboratory Results Laboratory Results WBC 8.92 K/uL (4.8-10.8) 06/10/18 17:59 RBC 3.78 M/uL (4.2-5.4) L 06/10/18 17:59 Hgb 12.0 g/dL (12.0-16.0) 06/10/18 17:59 Hct 34.7 % (37-47) L 06/10/18 17:59 MCV 91.8 fL (80-100) 06/10/18 17:59 MCH 31.7 pg (25-34) 06/10/18 17:59 MCHC 34.6 g/dL (32-36) 06/10/18 17:59 RDW Std Deviation 42.4 fL (36.4-46.3) 06/10/18 17:59 RDW Coeff of Teresa 12.6 % (11.5-14.5) 06/10/18 17:59 Plt Count 230 K/uL (130-400) 06/10/18 17:59 MPV 10.3 fL (7.4-10.4) 06/10/18 17:59 Immature Gran % (Auto) 0.2 % 06/10/18 17:59 Neut % (Auto) 88.3 % 06/10/18 17:59 Lymph % (Auto) 7.6 % 06/10/18 17:59 [place] % (Auto) 3.7 % 06/10/18 17:59 Eos % (Auto) 0.0 % 06/10/18 17:59 Baso % (Auto) 0.2 % 06/10/18 17:59 Immature Gran # (Auto) 0.02 K/uL (0.00-0.02) 06/10/18 17:59 Neut # (Auto) 7.87 K/uL (1.4-6.5) H 06/10/18 17:59 Lymph # (Auto) 0.68 K/uL (1.2-3.4) L 06/10/18 17:59 [place] # (Auto) 0.33 K/uL (0.11-0.59) 06/10/18 17:59 Eos # (Auto) 0.00 K/uL (0-0.5) 06/10/18 17:59 Baso # (Auto) 0.02 K/uL (0-0.2) 06/10/18 17:59 Sodium 138 mmol/L (136-145) 06/10/18 17:59 Potassium 2.8 mmol/L (3.5-5.1) L 06/10/18 17:59 Chloride 101 mmol/L (98-107) 06/10/18 17:59 Carbon Dioxide 25 mmol/L (21-32) 06/10/18 17:59 Anion Gap 12.0 (3-11) H 06/10/18 17:59 BUN 14 mg/dl (7-18) 06/10/18 17:59 Creatinine 1.83 mg/dl (0.6-1.2) H 06/10/18 17:59 Est Cr Clr Drug Dosing 49.2 ml/min 06/10/18 17:59 Est GFR ( Amer) 37.4 06/10/18 17:59 Est GFR (Non-Af Amer) 32.3 06/10/18 17:59 BUN/Creatinine Ratio 7.7 (10-20) L 06/10/18 17:59 Glucose 130 mg/dl (70-99) H 06/10/18 17:59 Calcium 8.4 mg/dl (8.5-10.1) L 06/10/18 17:59 Magnesium 1.2 mg/dl (1.8-2.4) L 06/10/18 17:59 Total Bilirubin 0.7 mg/dl (0.2-1) 06/10/18 17:59 AST 22 U/L (15-37) 06/10/18 17:59 ALT 20 U/L (12-78) 06/10/18 17:59 Alkaline Phosphatase 104 U/L (45-117) 06/10/18 17:59 Total Protein 7.8 gm/dl (6.4-8.2) 06/10/18 17:59 Albumin 3.9 gm/dl (3.4-5.0) 06/10/18 17:59 Globulin 3.9 gm/dl (2.5-4.0) 06/10/18 17:59 Albumin/Globulin Ratio 1.0 (0.9-2) 06/10/18 17:59 Lipase 316 U/L (73-393) 06/10/18 17:59 Diagnostic Findings [facility], [place] [phone] Nuclear Medicine Report Patient: NIDIA VELASQUEZ Date: 05/09/18 MR#: [id number]: [address] Acct ID:[id number]: Date: 1970[facility] Zip: [place] [address] Age: 47Location: [place] Sex: F Room/Bed: Att Phy: Dilia Yeagnosis: ABD PAIN, EPIGASTRIC PAIN Maday Phy: Yifan Grant MDService Date: 05/09/18 Fam Phy: Interpreting Phy: Jose Eduardo Ibrahim MD Admit Phy: Ordering Phy: Dilia Ye PA-C cc: ~ Nuclear gastric emptying study: CLINICAL HISTORY: ABD PAIN, EPIGASTRIC PAIN COMPARISON STUDY: CT of the abdomen and pelvis February 25, 2018. TECHNIQUE: Following the oral administration of 1.1 mCi of technetium 99m sulfur colloid in egg sandwich and 8 ounces of water, static abdominal images were obtained anteriorly and posteriorly at 0 minutes, 1 hour, 2 hour, and 4 hour time intervals. Gastric emptying was calculated utilizing the geometric mean method. FINDINGS: There is approximately 95% gastric activity remaining at the 1 hour time interval (normal is less than 90%), 90% at the 2 hour time interval (normal is less than 60%), and 73% remaining at the 4 hour time interval (normal is less than 10%). IMPRESSION: Abnormal exam with significantly delayed gastric emptying at each time point. Electronically signed by: Jose Eduardo Ibrahim M.D. 05/09/2018 12:53 PM Dictated: 05/09/18 125[address] [facility], [place] [phone] XRay Report Patient: NIDIA VELASQUEZ Date: 06/10/18 MR#: [id number]: [id number] Acct ID:[id number]: Date: 1970City Zip: [place] [address] Age: 47Location: ED Sex: F Room/Bed: Att Phy: Diagnosis: CONSTIPATION Maday Phy: Yifan Grant, MDService Date: 06/10/18 Fam Phy: Interpreting Phy: Niko Soares MD Admit Phy: Ordering Phy: Edith Daniels PA-C cc: ~ XR KUB CLINICAL HISTORY: abd pain constipation COMPARISON STUDY: No previous studies for comparison. FINDINGS: The soft tissues, psoas shadows, renal outlines and intestinal gas pattern appear normal. There is no evidence for bowel obstruction. No abnormal abdominal calcifications are seen. IMPRESSION: Normal study. The above report was generated using voice recognition software. It may contain grammatical, syntax or spelling errors. Electronically signed by: Niko Soares M.D. 06/10/2018 5:46 PM Dictated: 06/10/18 174 Transcribed: 06/10/18 174 Code Status & VTE Plan Code Status Full code VTE Prophylaxis Plan VTE Prophylaxis will be ordered: Yes
[2018-06-10 21:16] LABS: Magnesium 1.2 mg/dl (1.8-2.4)
[2018-06-10] MEDS ORDERED: GLUCAGON FOR INJ 1 MG VIAL SQ PRN (22:04)
[2018-06-10] MEDS ORDERED: ONDANSETRON INJ 2 MG/ML 2 ML VIAL IV PRN (22:04)
[2018-06-10] MEDS ORDERED: GLUCOSE 10 TABS/TUBE PO PRN (22:04)
[2018-06-10] MEDS ORDERED: POLYETHYLENE (MIRALAX) 17 GM PACK PO PRN (22:04)
[2018-06-10] MEDS ORDERED: DEXTROSE 50% 50 ML SYRINGE IV PRN (22:04)
[2018-06-10] MEDS ORDERED: ACETAMINOPHEN 325 MG TAB PO PRN (22:04)
[2018-06-10] MEDS ORDERED: MAGNESIUM HYDROXIDE SUSP 30 ML UDC PO PRN (22:04)
[2018-06-10] MEDS ORDERED: GLUCOSE 40% GEL 15 GM TUBE PO PRN (22:04)
[2018-06-10] MEDS ORDERED: CARBOHYDRATES FOR HYPOGLYCEMIA PO PRN (22:04)
[2018-06-10] MEDS ORDERED: BUTALBITAL/ACETAMIN/CAFFEINE TAB PO PRN (22:28)
[2018-06-10] MEDS: ESCITALOPRAM OXALATE 20 MG TAB PO SCH (23:35)
[2018-06-10] MEDS: ATORVASTATIN 40 MG TAB PO SCH (23:35)
[2018-06-10] MEDS: POTASSIUM CHLORIDE 20 MEQ TABCR PO SCH (23:36)
[2018-06-10] MEDS: INSULIN ASPART 100 UNITS/ML 3 ML PEN SC SCH (23:38)
[2018-06-10] MEDS: NSS + 20MEQ KCL 20 MEQ/1,000 ML BAG IV SCH (23:59)
[2018-06-11 00:08] LABS: Appearance Urine Clear (Clear); Bilirubin Urine Negative (Negative); Blood Urine Negative (Negative); Color Urine Yellow; Glucose Urine UA Negative (Negative); Ketones Urine Negative (Negative); Leukocyte Esterase Urine Negative (Negative); Nitrite Urine Negative (Negative); Protein Urine Negative (Negative); Specific Gravity Urine 1.012 (1.000-1.030); Urobilinogen Urine Negative (Negative); pH Urine 6.5 (4.5-7.5)
[2018-06-11] MEDS: NSS + 20MEQ KCL 20 MEQ/1,000 ML BAG IV SCH ×3 (06:24→19:45)
[2018-06-11 06:44] LABS: Estimated Average Glucose 120 mg/dl; Hemoglobin A1C 5.8 % (4.5-5.6)
[2018-06-11] MEDS: INSULIN ASPART 100 UNITS/ML 3 ML PEN SC SCH ×4 (07:59→21:38)
[2018-06-11] MEDS: CHOLECALCIFEROL 1,000 UNITS TAB PO SCH (07:59)
[2018-06-11] MEDS: POTASSIUM CHLORIDE 20 MEQ TABCR PO SCH ×2 (08:00→16:41)
[2018-06-11 09:12] LABS: BUN Creatinine Ratio 7.2 (10-20); Calcium 7.2 mg/dl (8.5-10.1); Creatinine Clr Calc Pharmacy 57.3 ml/min; Est GFR (Non-African American) 38.9; Magnesium 1.2 mg/dl (1.8-2.4); Phosphorus 2.2 mg/dl (2.5-4.9); Potassium 3.3 mmol/L (3.5-5.1)
[2018-06-11] MEDS ORDERED: POTASSIUM PHOS 3 MMOL/1 ML INFUSION IV STA (12:31)
[2018-06-11] MEDS ORDERED: MAGNESIUM SULFATE / D5W 1 GM/100 ML BAG IV STA (13:03)
[2018-06-11] MEDS ORDERED: POTASSIUM CHLORIDE 10 MEQ TABCR PO STA (13:04)
[2018-06-11] MEDS ORDERED: POTASSIUM PHOSPHATE 15 MMOL in SODIUM CHLORIDE 0.9% 250 ML IV ONE (13:30)
[2018-06-11] MEDS: MAGNESIUM OXIDE 400 MG TAB PO SCH ×2 (13:48→21:38)
--- NOTE | 2018-06-11 15:12 | Hospitalist Progress Note ---
Date of Service June 11, 2018 Assessment & Plan (1) Acute kidney injury: \ (2) Acute hypokalemia: (3) Delayed gastric emptying: (4) Hyperlipidemia: (5) Depression: (6) Diabetes mellitus: 47-year-old female Admitted on June 10, 2018 because of abdominal pain secondary to constipation, with no bowel movement over the past 2 weeks. Acute kidney injury/hypokalemia/dehydration, Likely from poor oral intake because of gastroparesis Proved after hydration and replaced mentation Continue IV fluid,Diet is clear liquid diet advance as tolerated Condition History of hypertension, Hold triamterene/HCTZ and losartan, Currently blood pressure is in good range may to resume when renal function normalizes, Continue encourage adequate oral intake of liquids. Hypomanic hypo-phosphorus, hypokalemia, Replace and follow-up Possible gastroparesis with Delayed gastric emptying: Study on 05/09/18 showed delayed gastric emptying likely with diabetic gastroparesis-- tried Reglan in the past but stopped due to side effects. Next option would be to try Amitiza as an outpatient. GI consult if needed Hyperlipidemia, Depression, and diabetic, continue current medication, HbA1c was checked was less than 6,Which indicated blood glucose diabetic has been fairly controlled Patient now has diarrhea, will continue current care, IV fluid and supportive care GI DVT px, Encourage patient to increase activity up and walk Subjective Feeling better, has bowel movement which is diarrhea, Generalized weakness, Decreased appetite, not eating drinking wellBecause of hx of gastroparesis Review of Systems Constitutional: Positive weakness, or fatigue Respiratory: no cough, sputum, wheezing, or dyspnea on exertion Cardiac: No chest pain, No orthopnea, Abdomen: See above Musculoskeletal: No joint pain, No muscle pain, No swelling : No dysuria, No urinary frequency, No incontinence, No hematuria Neurologic: No paralysis, No weakness, No numbness/tingling, No vertigo, No balance problems Psychiatric: No depression symptoms, No anhedonism, No anxiety, Heme: No abnormal bleeding/bruising, No clotting problems, Skin: No rash, No itch, No new/changing skin lesions, No color change, No b leeding Physical Exam Vital Signs (Past 24 Hours): Last Vital Signs Temp 37 C 06/11/18 07:44 Pulse 73 06/11/18 07:44 Resp 16 06/11/18 07:44 BP 105/66 06/11/18 07:44 Pulse Ox 96 06/11/18 07:44 Physical Exam: head: atraumatic, lying in bed and in no acute distress. HEENT--PERRL, EOMI, mild dry mucous membranes Neck--supple. No JVD. No bruits. Thyroid normal, trachea midline, no adenopathy. Heart--normal S1 and S2. No murmurs, rubs or gallops. Lungs--clear bilaterally, no respiratory distress, no accessory muscle use. Abdomen--normal bowel sounds and soft. Nontender. Nondistended, Extremities--no cyanosis or clubbing. No edema. There are good distal pulses b/l. Dermatologic--normal skin turgor, normal color, Neurologic--cranial nerves II through XII grossly intact. Rheumatologic--normal range of motion. Psychiatric--normal affect. awake, alert and oriented 3, well developed and well nourished, normocephalic and Results & Data Laboratory Results Laboratory Results - last 24 hr 06/10/18 06/10/18 06/10/18 17:59 17:59 17:59 WBC 8.92 RBC 3.78 L Hgb 12.0 Hct 34.7 L MCV 91.8 MCH 31.7 MCHC 34.6 RDW Std Deviation 42.4 RDW Coeff of Teresa 12.6 Plt Count 230 MPV 10.3 Immature Gran % (Auto) 0.2 Neut % (Auto) 88.3 Lymph % (Auto) 7.6 [place] % (Auto) 3.7 Eos % (Auto) 0.0 Baso % (Auto) 0.2 Immature Gran # (Auto) 0.02 Neut # (Auto) 7.87 H Lymph # (Auto) 0.68 L [place] # (Auto) 0.33 Eos # (Auto) 0.00 Baso # (Auto) 0.02 Sodium 138 Potassium 2.8 L Chloride 101 Carbon Dioxide 25 Anion Gap 12.0 H BUN 14 Creatinine 1.83 H Est Cr Clr Drug Dosing 49.2 Est GFR ( Amer) 37.4 Est GFR (Non-Af Amer) 32.3 BUN/Creatinine Ratio 7.7 L Glucose 130 H POC Glucose Estimat Average Glucose Hemoglobin A1c Calcium 8.4 L Phosphorus Magnesium 1.2 L Cancelled Total Bilirubin 0.7 AST 22 ALT 20 Alkaline Phosphatase 104 Total Protein 7.8 Albumin 3.9 Globulin 3.9 Albumin/Globulin Ratio 1.0 Lipase 316 Urine Color Urine Appearance Urine pH Ur Specific [place] Urine Protein Urine Glucose (UA) Urine Ketones Urine Blood Urine Nitrite Urine Bilirubin Urine Urobilinogen Ur Leukocyte Esterase 06/10/18 06/11/18 06/11/18 23:30 00:00 06:35 WBC RBC Hgb Hct MCV MCH MCHC RDW Std Deviation RDW Coeff of Teresa Plt Count MPV Immature Gran % (Auto) Neut % (Auto) Lymph % (Auto) [place] % (Auto) Eos % (Auto) Baso % (Auto) Immature Gran # (Auto) Neut # (Auto) Lymph # (Auto) [place] # (Auto) Eos # (Auto) Baso # (Auto) Sodium Potassium Chloride Carbon Dioxide Anion Gap BUN Creatinine Est Cr Clr Drug Dosing Est GFR ( Amer) Est GFR (Non-Af Amer) BUN/Creatinine Ratio Glucose POC Glucose 163 H Estimat Average Glucose 120 Hemoglobin A1c 5.8 H Calcium Phosphorus Magnesium Total Bilirubin AST ALT Alkaline Phosphatase Total Protein Albumin Globulin Albumin/Globulin Ratio Lipase Urine Color Yellow Urine Appearance Clear Urine pH 6.5 Ur Specific [place] 1.012 Urine Protein Negative Urine Glucose (UA) Negative Urine Ketones Negative Urine Blood Negative Urine Nitrite Negative Urine Bilirubin Negative Urine Urobilinogen Negative Ur Leukocyte Esterase Negative 06/11/18 06/11/18 06/11/18 06:35 07:27 11:31 WBC RBC Hgb Hct MCV MCH MCHC RDW Std Deviation RDW Coeff of Teresa Plt Count MPV Immature Gran % (Auto) Neut % (Auto) Lymph % (Auto) [place] % (Auto) Eos % (Auto) Baso % (Auto) Immature Gran # (Auto) Neut # (Auto) Lymph # (Auto) [place] # (Auto) Eos # (Auto) Baso # (Auto) Sodium 141 Potassium 3.3 L D Chloride 107 Carbon Dioxide 27 Anion Gap 7.0 BUN 11 Creatinine 1.57 H Est Cr Clr Drug Dosing 57.3 Est GFR ( Amer) 45.0 Est GFR (Non-Af Amer) 38.9 BUN/Creatinine Ratio 7.2 L Glucose 77 POC Glucose 83 104 H Estimat Average Glucose Hemoglobin A1c Calcium 7.2 L Phosphorus 2.2 L Magnesium 1.2 L Total Bilirubin AST ALT Alkaline Phosphatase Total Protein Albumin Globulin Albumin/Globulin Ratio Lipase Urine Color Urine Appearance Urine pH Ur Specific [place] Urine Protein Urine Glucose (UA) Urine Ketones Urine Blood Urine Nitrite Urine Bilirubin Urine Urobilinogen Ur Leukocyte Esterase
[2018-06-11] MEDS ORDERED: HydrALAZINE HCL 20 MG/ML VIAL IV PRN (15:28)
[2018-06-11] MEDS: ESCITALOPRAM OXALATE 20 MG TAB PO SCH (21:38)
[2018-06-11] MEDS: ATORVASTATIN 40 MG TAB PO SCH (21:38)
[2018-06-12] MEDS: NSS + 20MEQ KCL 20 MEQ/1,000 ML BAG IV SCH ×2 (02:14→07:56)
[2018-06-12 07:30] VITALS: TEMP 98.4; O2SAT 95
[2018-06-12] MEDS: MAGNESIUM OXIDE 400 MG TAB PO SCH (07:56)
[2018-06-12] MEDS: POTASSIUM CHLORIDE 20 MEQ TABCR PO SCH (07:56)
[2018-06-12] MEDS: CHOLECALCIFEROL 1,000 UNITS TAB PO SCH (07:56)
[2018-06-12] MEDS: INSULIN ASPART 100 UNITS/ML 3 ML PEN SC SCH ×2 (07:57→12:21)
[2018-06-12 08:09] LABS: BUN Creatinine Ratio 4.8 (10-20); Calcium 6.5 mg/dl (8.5-10.1); Creatinine Clr Calc Pharmacy 69.3 ml/min; Est GFR (African American) 56.6; Est GFR (Non-African American) 48.8; Magnesium 1.2 mg/dl (1.8-2.4); Phosphorus 2.7 mg/dl (2.5-4.9); Potassium 3.8 mmol/L (3.5-5.1)
[2018-06-12] MEDS ORDERED: MAGNESIUM SULFATE / D5W 1 GM/100 ML BAG IV ONE (12:15)
[2018-06-12 13:23] VITALS: BP 105/66; PULSE 73
--- NOTE | 2018-06-19 11:48 | Discharge Summary ---
Date of Service June 19, 2018 Admission HPI Per Admitting Provider The patient is a 47-year-old female who complains of abdominal pain secondary to constipation, with no bowel movement over the past 2 weeks. She has been diagnosed with gastroparesis and delayed gastric emptying via study on 05/09/18. She had tried enema earlier in the day without relief. She reports that earlier today when she tried to strain harder bowel movement she felt lightheaded and dizzy, had noted a few spots of blood on toilet paper with a known history of hemorrhoids, and thus presents to the emergency department for assessment. Principal Diagnosis no Discharge Data Allergies Allergy/AdvReac Type Severity Reaction Status Date / Time cefdinir Allergy Unknown HIVES Verified 05/07/18 11:20 erythromycin base Allergy Unknown HIVES Verified 05/07/18 11:20 hydrocodone Allergy Unknown HIVES Verified 05/07/18 11:20 oxycodone Allergy Unknown HIVES Verified 05/07/18 11:20 Penicillins Allergy Unknown HIVES Verified 05/07/18 11:20 Quinolones Allergy Unknown HIVES Verified 05/07/18 11:20 benzyl alcohol AdvReac Unknown "FELT Verified 05/07/18 11:20 WEIRD" prochlorperazine AdvReac Unknown "FELT Verified 05/07/18 11:20 WEIRD" saccharin AdvReac Unknown "FELT Verified 05/07/18 11:20 WEIRD" Consultations 06/10/18 20:23 ED Decision to Admit Stat 06/10/18 22:04 Consult Case Management - Discharge Planning Routine Hospital Course (1) Acute kidney injury: (2) Acute hypokalemia: (3) Delayed gastric emptying: (4) Hyperlipidemia: (5) Depression: (6) Diabetes mellitus: 47-year-old female Admitted on June 10, 2018 because of abdominal pain secondary to constipation, with no bowel movement over the past 2 weeks. Acute kidney injury/hypokalemia/dehydration, Likely from poor oral intake because of gastroparesis Improved after hydration has been on IV fluid,has advanced diet , tolerated ok History of hypertension, Hold triamterene/HCTZ and losartan, blood pressure has been in good range may to resume when renal function normalizes, Continue encourage adequate oral intake of liquids. upon discharge, has lab of bmp, mag, phos checked with pcp in the follow up visit has adviced hold triamterene/HCTZ and losartan, may restart in the follow up visit with pcp, adviced check BP twice daily, call pcp if SBP>200, or DBP>100 Hypomanic hypo-phosphorus, hypokalemia, Replace and follow-up Possible gastroparesis with Delayed gastric emptying: Study on 05/09/18 showed delayed gastric emptying likely with diabetic gastroparesis-- tried Reglan in the past but stopped due to side effects. Next option would be to try Amitiza as an outpatient. GI consult if needed Hyperlipidemia, Depression, and diabetic, continue current medication, HbA1c was checked was less than 6,Which indicated blood glucose diabetic has been fairly controlled GI DVT px, Encourage patient to increase activity up and walk Subjective upon discharge feeling better, no more diarrhea, Review of Systems Constitutional: Positive weakness but is better, or fatigue Respiratory: no cough, sputum, wheezing, or dyspnea on exertion Cardiac: No chest pain, No orthopnea, Abdomen: See above Musculoskeletal: No joint pain, No muscle pain, No swelling : No dysuria, No urinary frequency, No incontinence, No hematuria Neurologic: No paralysis, No weakness, No numbness/tingling, No vertigo, No balance problems Psychiatric: No depression symptoms, Heme: No abnormal bleeding/bruising, No clotting problems, Skin: No rash, No itch, No new/changing skin lesions, No color change, No bleeding Physical Exam at discharge Head: atraumatic, lying in bed and in no acute distress. HEENT--PERRL, EOMI, moist mucous membranes Neck--supple. No JVD. No bruits. Thyroid normal, trachea midline, no adenopathy. Heart--normal S1 and S2. No murmurs, rubs or gallops. Lungs--clear bilaterally, no respiratory distress, no accessory muscle use. Abdomen--normal bowel sounds and soft. Nontender. Nondistended, Extremities--no cyanosis or clubbing. No edema. Dermatologic--normal skin turgor, normal color, Neurologic--cranial nerves II through XII grossly intact. Rheumatologic--normal range of motion. Psychiatric--normal affect. awake, alert and oriented 3, well developed and well nourished, normocephalic and Total Time Total Time Spent Total Time Spent (In Minutes): 31 Discharge Plan Discharge Items Patient Disposition: Home - Self-Care Reason For Visit: CRISTINA,HYPOKALEMIA Discharge Diagnosis: acute kidney failure Condition: Fair Discharge Goals: Decrease discomfort, Diagnostic testing and Learn about illness Activity: Resume your previous activity Non-emergency contact: Primary Care Provider Call non-emergency contact if: you have any medication questions Follow-up/Referrals: Mickey Grant MD [Primary Care Provider] - 06/18/18 2:30 pm (Please, follow up with Dr. Grant on MondayJune 18 at 2:30 pm. *If you need to change this appointment, call the office at [phone].) Diet: Heart Healthy and Low Fat Addtl Provider Instructions: you have Acute kidney injury/hypokalemia/dehydration, Likely from poor oral intake because of gastroparesis you need t keep hydration, plenty fluid intake you need to ahve lab of bmp, mag, phos checked with pcp in the follow up visit you have hypertension, Hold triamterene/HCTZ and losartan, recommend continue to hold may restart in the follow up visit with pcp, check BP twice daily, call pcp if SBP>200, or DBP>100 Possible gastroparesis with Delayed gastric emptying, you need to follow up with pcp about this you need to follow up with your primary care physician in 1 week, - take medication as instructed, never overdose or any misuse, or take with alcohol, because misuse of medicine may cause organ damage or , call me, or your primary care physician if have questions of discharge medicaitons. - call your primary care physician, or go to local emergency room if has any fever/chill, chest pain, shortness of breathing, nausea/vomiting/abdominal pain, facial droop/slurry speech/local weakness, or if has any questions. - fall precaution - diet as instructed Prescriptions: New magnesium oxide 400 mg (241.3 mg magnesium) Tablet 400 mg PO BID 10 Days Qty: 20 RF: 0 Continued atorvastatin 40 mg Tablet 40 mg PO QPM RF: 0 valacyclovir 1 gram Tablet 2,000 mg PO DAILY PRN (Reason: Cold Sores) RF: 0 lorazepam 0.5 mg Tablet 0.5 mg PO DIRECTED PRN (Reason: Anxiety) RF: 0 cholecalciferol (vitamin D3) [Vitamin D3] 2,000 unit Capsule 2,000 units PO QAM RF: 0 [id number] [Fioricet] 50-300-40 mg Capsule 1 cap PO UD PRN (Reason: Migraine Headache) RF: 0 escitalopram oxalate 20 mg Tablet 20 mg PO HS RF: 0 Victoza 3-Antonio 0.6 mg/0.1 mL (18 mg/3 mL) Pen Injector 1.8 mg SUBCUT HS RF: 0 bupropion HCl [Wellbutrin SR] 150 mg Tablet Sustained-Release 12 Hr 150 mg PO BID RF: 0 Discontinued triamterene-hydrochlorothiazid 37.5-25 mg Capsule 1 cap PO QAM RF: 0 losartan 100 mg Tablet 100 mg PO QAM RF: 0 potassium chloride 20 mEq Tablet Extended Release 20 meq PO BID RF: 0 Stand-Alone Forms: Call Back Authorization, [facility] Discharge Orders: Discharge Order (Routine); Ordered 06/12/18 Ordered By: Bryce Ogden Admission Data Admit Date/Time: 06/10/18 20:59 Attending Provider: Bryce Ogden Admit Provider: Efrain Britt Primary Care Provider: Mickey Grant Other Providers: Efrain Britt Service: Medical Other Interventions: Discharge Summary Assessment (RN) Last Done: 06/12/18 13:22 DC Date/Time DO NOT enter until pt leaves facility: 06/12/18 14:39
== END 2018-06-12 14:39 | disposition home or self-care (01) ==
LOC: 2N 16:56 → ED 16:56 → SUATTDRO 20:59 → 2N 21:37
DX: Z88.5 Allergy status to narcotic agent; E86.0 Dehydration; K76.0 Fatty (change of) liver, not elsewhere classified; Z88.1 Allergy status to other antibiotic agents; F32.9 Major depressive disorder, single episode, unspecified; Z83.3 Family history of diabetes mellitus; Z79.899 Other long term (current) drug therapy; F41.9 Anxiety disorder, unspecified; K30 Functional dyspepsia; I10 Essential (primary) hypertension; Z88.8 Allergy status to other drugs, medicaments and biological substances; E11.9 Type 2 diabetes mellitus without complications; N17.9 Acute kidney failure, unspecified; E78.5 Hyperlipidemia, unspecified; E83.39 Other disorders of phosphorus metabolism; I95.9 Hypotension, unspecified; K21.9 Gastro-esophageal reflux disease without esophagitis; G47.30 Sleep apnea, unspecified; E87.6 Hypokalemia